=== PATIENT | female | born 1970 | race Caucasian/White ===

== ENCOUNTER → 2020-03-20 14:53 | Outpatient (CLI) | payer OTHER, SELFPAY ==
--- NOTE | ~2020-03-20 | MM_ITS ---
EXAMINATION: MM screening [facility] BI w chantal HISTORY: Screening mammogram TECHNIQUE: Craniocaudal and mediolateral oblique 3-D tomosynthesis images were obtained and synthetic 2-D images were generated. CAD analysis was submitted and interpreted. COMPARISON: 03/17/2019, 12/31/2017, 11/09/2016 bilateral digital screening mammogram examinations BREAST PARENCHYMAL COMPOSITION: There are scattered areas of fibroglandular density.. FINDINGS: There is no evidence of suspicious mass, calcification, or architectural distortion to sugg est malignancy in either breast. There has been no suspicious interval change. IMPRESSION: 1. No mammographic evidence of malignancy. 2. Recommend routine screening mammography in one year. BI-RADS Category 1: Negative Reviewed, dictated and finalized at location A. RNS CLERK
== END ==
PROVIDERS: Visit Provider Obstetrics & Gynecology Gynecology
DX: Z12.31 Encounter for screening mammogram for malignant neoplasm of breast (principal)
CPT/HCPCS: 77063; 77067

== ENCOUNTER 2020-12-03 13:58 | Emergency (ER) | payer BC, SELFPAY ==
--- NOTE | ~2020-12-03 | CT_ITS ---
EXAMINATION: CTA chest PE protocol DATE: 12/03/2020 19:03 INDICATION: Shortness of breath. TECHNIQUE: Computed tomography angiography (CTA) of the chest was performed with 100 mL Omnipaque-350 intravenous contrast timed to evaluate the pulmonary arteries. Coronal maximum intensity projection 3D-reconstructions were created by the technologist. Automated exposure control and iterative reconst ruction technique were employed. The dose-length product was 454.64 mGy-cm. COMPARISON: Chest single view 12/03/2020 FINDINGS: There are patchy groundglass opacities and septal thickening in the upper lobes and right m iddle lobe. There are airspace and groundglass opacities in the lower lobes with a posterior predomin ance. No pleural effusion. The heart size is normal. No pericardial effusion. There is no pulmonary e mbolus. There is moderate thoracic spondylosis. IMPRESSION: 1. No pulmonary embolus. 2. Diffuse lung disease, consistent with COVID-19 pneumonia. Reviewed, dictated and finalized at location A.
--- NOTE | ~2020-12-03 | XR_ITS ---
EXAMINATION: XR chest 1V portable DATE: 12/03/2020 17:44 INDICATION: Shortness of breath. COVID-19 pneumonia. TECHNIQUE: A single frontal view of the chest was obtained. COMPARISON: None. FINDINGS: There are mild airspace opacities in right lower lung zone. No pleural effusion or pneumoth orax. The heart size is normal. IMPRESSION: 1. Mild airspace opacities in right lower lung zone, consistent with atelectasis versus pneumonia. Reviewed, dictated and finalized at location A. IMPRESSION: 1. Mild airspace opacities in right lower lung zone, consistent with atelectasi s versus pneumonia.
[2020-12-03 14:51] VITALS: BP 134/70; O2SAT 97
--- NOTE | 2020-12-03 17:02 | ECG_ITS ---
Measurements Intervals [place] Rate: 90 P: 26 OR: 177 QRS: -1 QRSD: 81 T: 21 QT: 361 QTc: 443 Interpretive Statements SINUS RHYTHM DELAYED PRECORDIAL R/S TRANSITION LOW VOLTAGE- LIMB LEADS BASELINE WANDER- V1, V3-V5 BORDERLINE ECG Electronically Signed On 12-03-2020 20:04:20 CDT by Pérez Moura D.O.
[2020-12-03 17:45] LABS: Basophils Percent Auto 0.2 % (0.2-1.2); Hematocrit 43.8 % (37.0-47.0); Hemoglobin 14.5 g/dL (12.0-15.0); Immature Granulocyte Absolute 0.06 K/mm3 (0.00-0.031); Immature Granulocyte Percent A 1.1 % (0-0.5); Lymphocytes Percent Auto 20.5 % (18.3-44.2); Mean Corpuscular HGB Conc 33.1 g/dl (32-36); Mean Corpuscular Hemoglobin 29.8 pg (26-34); Mean Corpuscular Volume 90.1 fl (80-100); Monocytes Absolute Auto 0.3 K/mm3 (0.1-0.6); Neutrophils Absolute Auto 3.9 K/mm3 (1.3-6.7); Neutrophils Percent Auto 72.2 % (45.5-73.1); Platelet Count Result 150 k/mm3 (150-375); Red Blood Count 4.86 M/mm3 (4.2-5.4); Red Cell Distribution Width 12.7 % (11.5-14.5); White Blood Count 5.4 K/mm3 (4.5-10.0)
[2020-12-03 17:57] LABS: Alanine Aminotransferase 534 U/L (4-35); Albumin Level 4.1 g/dL (3.5-5.1); Alkaline Phosphatase 79 U/L (38-126); Anion Gap 6 mmol/L (8-16); Aspartate Amino Transferase 400 U/L (14-36); Bilirubin,Total 0.6 mg/dL (0.2-1.3); Blood Urea Nitrogen 9 mg/dL (7-17); Calcium 8.2 mg/dL (8.4-10.2); Carbon Dioxide 26 mmol/L (22-30); Chloride 100 mmol/L (98-107); Estimated Glomerular Filt Rate > 60; Glucose 189 mg/dL (65-110); INR 0.8; Lactate Dehydrogenase 1660 U/L (313-618); Potassium 4.3 mmol/L (3.4-5.0); Prothrombin Time 11.4 Seconds (11.1-14.7); Sodium 132 mmol/L (137-145)
[2020-12-03 17:58] LABS: Partial Thromboplastin Time 30.8 SECONDS (22.3-36.8)
[2020-12-03 18:15] LABS: Procalcitonin 0.1 ng/mL
--- NOTE | 2020-12-03 18:16 | ED.URI ---
HPI - URI/Sore Throat General Chief Complaint: Upper Respiratory Infection Stated Complaint: low o2 sats, covid positive Time Seen by Provider: 12/03/20 17:02 Source: patient Mode of arrival: ambulatory Limitations: no limitations History of Present Illness HPI Narrative: This is a 50 year old female that presents to the ER for shortness of breath. Reports she was diagnosed with COVID on November 30. Her symptoms started on November 25. Reports cough, fever, chills, and congestion. Reports she has a pulse oximeter at home and after she got up to go to the bathroom it was in the high 80s briefly. Also reports she has had some cramping in her right calf today which prompted her to be seen. She did not get the Covid vaccine. Denies chest pain or lower extremity edema. Related Data Allergies Allergy/AdvReac Type Severity Reaction Status Date / Time No Known Allergies Allergy Verified 12/03/20 16:59 Review of Systems Review of Systems: CONSTITUTIONAL: Reports fever, chills CARDIOVASCULAR: Denies chest pain, or edema. RESPIRATORY: Reports cough and dyspnea. All systems reviewed & are unremarkable except as noted in HPI and below PMFSH Past Medical History Medical History (Updated 12/03/20 @ 20:42 by Jeannette Ann PA-C) History of hypothyroidism Social History Social History (Updated 12/03/20 @ 18:22 by Jeannette Ann PA-C) Substance use: never Gender identity (if verbalized by the patient): Female Exam Narrative: GENERAL: Well-appearing, well-nourished, and in no acute distress. HEAD: Normocephalic, atraumatic. EYES: EOMI. ENT: Nares clear, no rhinorrhea or epistaxis. Mucous membranes moist. Oropharynx without tonsillar hypertrophy exudate or other lesions. Bilateral TMs pearly ram non-bulging NECK: Supple. No adenopathy or masses. CHEST: Rales at the lung bases. No respiratory distress. No wheezes or rhonchi HEART: Regular rate and rhythm. No murmur heard. Normal peripheral pulses. EXTREMITIES: Normal range of motion. No edema. SKIN: Warm, dry, no rash. NEURO: No focal deficits. Alert and oriented x3. PSYCH: Normal mood and affect Course Vital Signs Vital signs: Vital Signs Blood Pressure 134/70 12/03/20 14:51 Pulse Oximetry 97 12/03/20 14:51 Temperature 98.3 F 12/03/20 18:23 Pulse Rate 93 12/03/20 18:23 Respiratory Rate 18 12/03/20 18:23 Blood Pressure 99/56 L 12/03/20 18:23 Pulse Oximetry 96 12/03/20 18:23 MDM - URI/Sore Throat MDM Narrative Medical decision making narrative: Patient presents to the emergency department for ongoing cold symptoms. Was reporting some low oxygen saturations noted on her home pulse oximeter. Patient's oxygen saturation has remained normal while in the ED. She is afebrile and nontoxic-appearing. CBC without concerning findings. Metabolic panel does show transaminitis. Inflammatory markers are elevated. EKG without concerning findings. Her D-dimer was elevated, so CTA of the chest was obtained. This was without evidence of PE. Does show diffuse lung disease consistent with COVID-19 pneumonia. Patient able to ambulate in the ED and maintain oxygen saturation above 90%. She will be set up for an ultrasound of her lower extremities in the morning. She was given a dose of Lovenox while in the ED. She is stable and felt appropriate for further outpatient evaluation. Instructed to continue to monitor her oxygen saturation at home. She is to follow-up with her primary care doctor. She was given warnings to return to the ER Lab Data Attestation: I reviewed the patient's lab results. Result diagrams: 12/03/20 17:21 12/03/20 17:21 Labs: Lab Results 12/03/20 12/03/20 12/03/20 Range/Units 17:21 17:21 17:21 WBC 5.4 (4.5-10.0) K/mm3 RBC 4.86 (4.2-5.4) M/mm3 Hgb 14.5 (12.0-15.0) g/dL Hct 43.8 (37.0-47.0) % MCV 90.1 (80-100) fl MCH 29.8 (26-34) pg MCHC 33.1 (32-36) g/dl R
[2020-12-03 18:23] VITALS: BP 99/56; PULSE 93; RESP 18; TEMP 36.8; O2SAT 96
[2020-12-03 18:27] LABS: D Dimer 0.89 ug/mL (<0.48)
[2020-12-03 20:00] VITALS: BP 106/70; PULSE 84; RESP 20; O2SAT 95
[2020-12-03 20:30] LABS: Ferritin > 2000.00 ng/mL (11.1-264)
[2020-12-03] MEDS: ENOXAPARIN 100 MG/ML SYRINGE SUB-Q (20:44)
[2020-12-03 20:50] VITALS: BP 103/70; PULSE 80; RESP 20; O2SAT 95
== END 2020-12-03 20:50 | disposition home or self-care (01) ==
PROVIDERS: Physician Assistant; Emergency Provider Emergency Medicine; PCP Internal Medicine
DX: U07.1 COVID-19 (principal); J12.82 Pneumonia due to coronavirus disease 2019; E03.9 Hypothyroidism, unspecified
CPT/HCPCS: 36415; 71045; 71275; 80053; 82728; 83615; 84145; 85025; 85380; 85610; 85730; 93005; 96372; 99284; J1650; Q9967

== ENCOUNTER → 2021-05-23 14:28 | Outpatient (CLI) | payer BC, SELFPAY ==
--- NOTE | ~2021-05-23 | MM_ITS ---
EXAMINATION: MM screening [facility] BI w chantal HISTORY: Screening mammogram TECHNIQUE: Craniocaudal and mediolateral oblique 3-D tomosynthesis images were obtained and synthetic 2-D images were generated. CAD analysis was submitted and interpreted. COMPARISON: 03/20/2020, 03/17/2019, 12/31/2017 BREAST PARENCHYMAL COMPOSITION: There are scattered areas of fibroglandular density. FINDINGS: There is no evidence of suspicious mass, calcification, or architectural distortion to sugg est malignancy in either breast. There has been no suspicious interval change. IMPRESSION: 1. No mammographic evidence of malignancy. 2. Recommend routine screening mammography in one year. BI-RADS Category 1: Negative Reviewed, dictated and finalized at location A. ERCIAL LINES UNDERWRITER
== END ==
PROVIDERS: Visit Provider Obstetrics & Gynecology Gynecology
DX: Z12.31 Encounter for screening mammogram for malignant neoplasm of breast (principal)
CPT/HCPCS: 77063; 77067

== ENCOUNTER → 2022-05-27 13:25 | Outpatient (CLI) | payer BC, SELFPAY ==
--- NOTE | ~2022-05-27 | MM_ITS ---
EXAMINATION: MM screening [facility] BI w chantal HISTORY: Screening TECHNIQUE: Craniocaudal and mediolateral oblique 3-D tomosynthesis images were obtained and synthetic 2-D images were generated. CAD analysis was submitted and interpreted. COMPARISON: Comparison to multiple prior studies sequentially, with oldest reviewed study dated 08/24. BREAST PARENCHYMAL COMPOSITION: Breast composed of scattered areas of fibroglandular density FINDINGS: There is no evidence of suspicious mass, calcification, or architectural distortion to sugg est malignancy in either breast. There has been no suspicious interval change. IMPRESSION: 1. No mammographic evidence of malignancy. 2. Recommend routine screening mammography in one year. BI-RADS Category 1: Negative Reviewed, dictated and finalized at location A. BALLER
== END ==
PROVIDERS: PCP Internal Medicine; Visit Provider Obstetrics & Gynecology Gynecology
DX: Z12.31 Encounter for screening mammogram for malignant neoplasm of breast (principal)
CPT/HCPCS: 77063; 77067

== ENCOUNTER 2023-01-17 10:00 | Outpatient (CLI) | payer BC, SELFPAY ==
[2023-01-17 17:01] LABS: Alanine Aminotransferase 21 U/L (6-35); Albumin Level 3.9 g/dL (3.5-5.1); Alkaline Phosphatase 60 U/L (38-126); Anion Gap 4 mmol/L (8-16); Aspartate Amino Transferase 32 U/L (14-36); Bilirubin,Total 0.5 mg/dL (0.2-1.3); Blood Urea Nitrogen 10 mg/dL (7-17); Calcium 8.5 mg/dL (8.4-10.2); Carbon Dioxide 27 mmol/L (22-30); Chloride 106 mmol/L (98-107); Cholesterol 207 mg/dL (0-200); Estimated Glomerular Filt Rate > 60; Glucose 117 mg/dL (65-110); HDL Direct 83 mg/dL; Potassium 4.5 mmol/L (3.4-5.0); Sodium 137 mmol/L (137-145); Triglycerides 100 mg/dL (<150)
[2023-01-17 17:12] LABS: LDL Cholesterol Direct 85 mg/dL
[2023-01-17 17:47] LABS: Free T4 Free Thyroxine 1.06 ng/mL (0.78-2.19); Vitamin D 25 Hydroxy 51.8 ng/mL
[2023-01-17 19:38] LABS: Hemoglobin A1C 5.7 % (<5.7)
== END 2023-01-17 10:01 | disposition home or self-care (01) ==
LOC: ANHGOSHLAB 10:02
PROVIDERS: PCP Physician Assistant Medical; Visit Provider Obstetrics & Gynecology Gynecology
DX: E11.9 Type 2 diabetes mellitus without complications (principal); E03.9 Hypothyroidism, unspecified
CPT/HCPCS: 36415; 80053; 80061; 82306; 83036; 84439; 84443

== ENCOUNTER → 2023-05-30 12:53 | Outpatient (CLI) | payer BC, SELFPAY ==
--- NOTE | ~2023-05-30 | MM_ITS ---
EXAMINATION: MM screening debi BI w chantal HISTORY: Screening TECHNIQUE: Craniocaudal and mediolateral oblique 3-D tomosynthesis images were obtained and synthetic 2-D images were generated. CAD analysis was submitted and interpreted. COMPARISON: Comparison to multiple prior studies sequentially, with oldest reviewed study dated 11/09. BREAST PARENCHYMAL COMPOSITION: Not dense: There are scattered areas of fibroglandular density. FINDINGS: There is no evidence of suspicious mass, calcification, or architectural distortion to sugg est malignancy in either breast. There has been no suspicious interval change. IMPRESSION: 1. No mammographic evidence of malignancy. 2. Recommend routine screening mammography in one year. BI-RADS Category 1: Negative Reviewed, dictated and finalized at location A. CREW SUPERVISOR
== END ==
PROVIDERS: PCP Obstetrics & Gynecology Gynecology; Visit Provider Obstetrics & Gynecology Gynecology
DX: Z12.31 Encounter for screening mammogram for malignant neoplasm of breast (principal)
CPT/HCPCS: 77063; 77067

== ENCOUNTER 2023-07-01 13:28 | Emergency (ER) | payer BC, SELFPAY ==
--- NOTE | 2023-07-01 13:31 | ED.URI ---
HPI - URI/Sore Throat General Chief Complaint: Upper Respiratory Infection Stated Complaint: Sinus Infection Symptoms Source: patient and RN notes reviewed Mode of arrival: ambulatory Limitations: no limitations History of Present Illness HPI Narrative: Patient is a 52-year-old female who presents to the [facility] with complaints of sinus pain and pressure for the past month. She also endorses nasal congestion and drainage. States that she has had a headache and sore throat. Patient also reports frequent nonproductive cough. She denies chest pain or shortness of breath. States that she has been experiencing increased fatigue. She denies recent fevers or chills. Denies abdominal pain, nausea, vomiting, diarrhea. Related Data Home Medications Medication Instructions Recorded Confirmed cholecalciferol (vitamin D3) 1,250 1,250 mcg PO WEEKLY 07/22/22 10/25/22 mcg (50,000 unit) capsule levothyroxine 50 mcg capsule 50 mcg PO DAILY 07/22/22 10/25/22 Allergies Allergy/AdvReac Type Severity Reaction Status Date / Time amoxicillin [From Augmentin] AdvReac Severe Vomiting Verified 07/01/23 13:38 ciprofloxacin AdvReac Severe Hives Verified 07/01/23 13:38 clavulanic acid AdvReac Severe Vomiting Verified 07/01/23 13:38 [From Augmentin] Review of Systems Review of Systems: CONSTITUTIONAL: Denies fever, chills, or sweats. Reports fatigue EYES: Denies visual changes, redness, or discharge. ENT: Denies otalgia. Reports sore throat and nasal congestion. Reports sinus pain and pressure. CARDIOVASCULAR: Denies chest pain, palpitations, or edema. RESPIRATORY: Reports cough but denies dyspnea. GASTROINTESTINAL: Denies abdominal pain, nausea, vomiting, or diarrhea. GENITOURINARY: Denies dysuria or hematuria. SKIN: Denies rash or itching. MUSCULOSKELETAL: Denies back pain, joint pain, or myalgia. NEUROLOGIC: Reports headache but denies numbness or weakness. Pertinent positives per HPI. [facility] Past Medical History Medical History Asthma delivery delivered Hypothyroidism Pre-diabetes Family History Family History Mother Thyroid disease Grandparent Breast cancer Diabetes mellitus Cerebrovascular accident Social History Social History Smoking status: Never smoker Alcohol intake: never Substance use: never Lack of Transportation: No Lack of Food: Never True Current Housing: I Have Housing Concerned About Future Housing: No Difficulty Paying Gas/Electric Bills: No Currently Unemployed: No Difficulty w/ Childcare or Family Care: No Living arrangements: with family Occupation/Education: occupation Gender identity (if verbalized by the patient): Female Comments At the time of my signature, I reviewed and agree with the nursing past medical, surgical, social, and family history. There is no relevant family history pertinent to the patient complaint. Exam Narrative: GENERAL: This is a well-nourished, well-developed patient, in no apparent distress. HEAD: normocephalic, atraumatic. EYES: Sclera clear/white. Vision is grossly intact. EARS: External ears normal. Hearing grossly intact. NOSE: External nose normal. + congestion. Sinus tenderness. THROAT: Mucous membranes moist, posterior pharynx clear. NECK: Neck supple, non-tender without lymphadenopathy, masses or thyromegaly. CARDIOVASCULAR: Regular rate and rhythm without murmurs, gallops, or rubs. RESPIRATORY: Clear to auscultation. Breath sounds equal bilaterally. No wheezes, rales, or rhonchi. GASTROINTESTINAL: Abdomen soft, non-tender, nondistended. Bowel sounds are active. No hepato-splenomegaly, or palpable masses. No guarding. SKIN: warm, intact with no suspicious lesions or rash, good texture and turgor. NEURO: awake, alert, and oriented to person, p
[2023-07-01 13:45] VITALS: BP 117/71; PULSE 73; RESP 16; TEMP 36.5; O2SAT 100
== END 2023-07-01 13:58 | disposition home or self-care (01) ==
PROVIDERS: Emergency Provider Nurse Practitioner; PCP Family Medicine
DX: J01.90 Acute sinusitis, unspecified (principal); J45.909 Unspecified asthma, uncomplicated; E03.9 Hypothyroidism, unspecified; R73.03 Prediabetes
CPT/HCPCS: 99213; G0463

== ENCOUNTER 2023-10-24 09:49 | Outpatient (CLI) | payer BC, SELFPAY ==
[2023-10-28 15:15] LABS: Kit Draw Collected
== END 2023-10-24 09:50 | disposition home or self-care (01) ==
LOC: ANHGOSHLAB 09:52
PROVIDERS: PCP Family Medicine; Visit Provider Chiropractor
DX: E03.9 Hypothyroidism, unspecified (principal); E07.9 Disorder of thyroid, unspecified; D50.1 Sideropenic dysphagia; E55.9 Vitamin D deficiency, unspecified
CPT/HCPCS: 36415

== ENCOUNTER 2024-07-03 17:00 | Emergency (ER) | payer BC, SELFPAY ==
[2024-07-03 17:10] VITALS: BP 150/89; PULSE 82; RESP 16; TEMP 37.1; O2SAT 100
--- NOTE | 2024-07-03 17:23 | ED_ITS ---
HPI - Ear Problem General Chief complaint: Ear Stated complaint: LT ear ache History of Present Illness HPI Narrative: 54-year-old female presents today with complaints of intermittent left ear pain for 1 month. Denies any fever, body aches, chills, sinus congestion, runny nose. She does endorse seasonal allergies which she does have sometimes at this time of the year. Denies any drainage from the ear. She has tried Benadryl and Tylenol to help with the symptoms with little relief. She states she does have painful left side of the neck and her throat cm raw but not too bad. Related Data Home Medications ?Medication ?Instructions ?Recorded ?Confirmed ?Last Taken ?Type cholecalciferol (vitamin D3) 1,250 1,250 mcg PO WEEKLY 07/22/22 07/03/24 Unknown History mcg (50,000 unit) capsule levothyroxine 50 mcg capsule 50 mcg PO DAILY 07/22/22 07/03/24 Unknown History Allergies Allergy/AdvReac Type Severity Reaction Status Date / Time amoxicillin (From Augmentin) AdvReac Severe Vomiting Verified 07/03/24 17:07 ciprofloxacin AdvReac Severe Hives Verified 03/19/24 10:29 clavulanic acid (From AdvReac Severe Vomiting Verified 07/03/24 17:07 Augmentin) Review of Systems Review of Systems: All systems reviewed & are unremarkable except as noted in HPI and below Eyes: Eyes: Reports as per HPI ENT: Reports as per HPI Cardiovascular: Cardiovascular: Reports as per HPI Respiratory: Respiratory: Reports as per HPI Genitourinary: Genitourinary: Reports as per HPI Musculoskeletal: Musculoskeletal: Reports as per HPI Integumentary/Breasts: Skin/Breast: Reports as per HPI Neurologic: Reports as per HPI Psychiatric: Psychiatric: Reports as per HPI Endocrine: Endocrine: Reports as per HPI Hematologic/Lymphatic: Hematologic/Lymphatic: Reports as per HPI Allergic/Immunologic: Allergic/Immunologic: Reports as per HPI PMFSH Past Medical History Medical History Asthma delivery delivered Hypothyroidism Pre-diabetes Family History Family History Mother Thyroid disease Grandparent Breast cancer Diabetes mellitus Cerebrovascular accident Social History Social History (Updated 03/19/24 @ 10:57 by Roberto Branch) Social History: 03/19/24 patient declined SDOH Smoking status: Never smoker Alcohol intake: never Substance use: never Lack of Transportation: No Lack of Food: Never True Current Housing: I Have Housing Concerned About Future Housing: No Difficulty Paying Gas/Electric Bills: No Currently Unemployed: No Difficulty w/ Childcare or Family Care: No Living arrangements: with family Occupation/Education: occupation Gender identity (if verbalized by the patient): Female Exam Const: General: cooperative, healthy appearing, comfortable, no acute distress and well developed Orientation/consciousness: patient oriented x3 HENMT: Head: normal to inspection Ears: hearing grossly normal bilaterally, external ears normal and TM abnormal wth effusion serous bilateral Throat: posterior oropharynx normal Eyes: General: appearance normal, both eyes and all related structures Neck: Neck: normal visual inspection and no lymphadenopathy Resp: Effort & Inspection: normal respiratory effort and able to speak in complete sentences Auscultation: clear to auscultation bilaterally Cardio: Rate: regular rate Rhythm: regular rhythm Heart sounds: S1 normal heart sound present and S2 normal heart sound present Skin: General skin exam: normal color Neuro: General: patient oriented x3 Cognition (Neuro): normal cognition Speech: normal speech Psych: Mental Status: mental status grossly normal Course Course Level of Care: Express Care Visit Vital Signs Vital signs: Vital Signs Temperature 98.7 F 07/03/24 17:10 Pulse Rate 82 07/03/24 17:10 Respiratory Rate 16 07/03/24 17:10 Blood Pressure 150/89 H 07/03/24 17:10 Pulse Oximetry 100 07/03/24 17:10 Temperature 98.7 F 07/03/24 17:10 Pulse Rate 82 07/03/24 17:10 Respiratory Rate 16 07/03/24 17:10 Blood Pressure 150/89 H 07/03/24 17:10 Pulse Oximetry 100 07/03/24 17:10 Medical Decision Making MDM Narrative Medical decision making narrative: 54-year-old woman HPI is noted. Differentials include sinusitis, acute otitis media, acute otitis externa, ear pain. bilateral serous effusions noted with out signs of acute infection. Sinuses nontender. Discussed with patient suggest using a Claritin-D Zyrtec D or Odalis D to help dry things up. If pain persists then is to follow-up with ENT for further evaluation. Vital Signs Vital Signs: Vital Signs Temperature 98.7 F 07/03/24 17:10 Pulse Rate 82 07/03/24 17:10 Respiratory Rate 16 07/03/24 17:10 Blood Pressure 150/89 H 07/03/24 17:10 Pulse Oximetry 100 07/03/24 17:10 Temperature 98.7 F 07/03/24 17:10 Pulse Rate 82 07/03/24 17:10 Respiratory Rate 16 07/03/24 17:10 Blood Pressure 150/89 H 07/03/24 17:10 Pulse Oximetry 100 07/03/24 17:10 Discharge Plan Discharge Clinical Impression: Ear pain, left Patient Disposition: Home, Self-Care Condition: Stable Instructions: Antibiotic Form, Earache (ED) Additional Instructions: tylenol or ibuprofen as needed for pain. try using claritin d/zyrtec d/ or odalis d to help dry things up to see if there is improvement. If still with pain follow with ENT. Patient Language: Slovak Prescriptions: New Claritin-D 24 Hour 10-240 mg tablet extended release 24 hr 1 tablet PO DAILY PRN (Reason: sinus symptoms) Qty: 20 0RF No Action cholecalciferol (vitamin D3) 1,250 mcg (50,000 unit) capsule 1,250 mcg PO WEEKLY levothyroxine 50 mcg capsule 50 mcg PO DAILY ipratropium-albuterol 0.5 mg-3 mg(2.5 mg base)/3 mL solution for nebulization 3 ml inhalation QID PRN (Reason: shortness of breath or wheezing) Qty: 180 0RF bimatoprost 0.03 % drops 1 drp EACH EYE QPM Qty: 2.5 2RF Follow-up/Referrals: Constantino Ortega M.D. [Physician] - Carlota Nunez PA-C [Primary Care Provider] - Time of Disposition: 17:21
== END 2024-07-03 17:25 | disposition home or self-care (01) ==
PROVIDERS: Emergency Provider Nurse Practitioner Family; PCP Physician Assistant Medical
DX: H92.02 Otalgia, left ear (principal); J45.909 Unspecified asthma, uncomplicated; E03.9 Hypothyroidism, unspecified; R73.03 Prediabetes
CPT/HCPCS: 99213; G0463

== ENCOUNTER 2024-09-17 14:53 | Emergency (ER) | payer BC, SELFPAY ==
[2024-09-17 15:12] VITALS: BP 117/69; PULSE 70; RESP 16; TEMP 36.5; O2SAT 100
--- NOTE | 2024-09-17 15:47 | ED.GENADULT ---
HPI - General Adult General Chief complaint: Upper Respiratory Infection Stated complaint: SWOLLEN GLANDS/TIRED/DECREASED APPETITE Time Seen by Provider: 09/17/24 15:47 Source: patient, RN notes reviewed and old records reviewed Mode of arrival: ambulatory Limitations: no limitations History of Present Illness HPI narrative: 54 year female who presents to [facility] care with complaints of head congestion, drainage, some sore throat since . Patient reports that she has tenderness to her tonsillar lymph nodes and noticed left armpit swelling and tenderness this morning when she showered. Patient reports that she has been fatigued and appetite has been decreased. Patient reports that she did take home COVID test which was negative and she has had mono in the past. Patient states that she has had similar symptoms in the past which cleared with antibiotics. Patient reports that she has been taking Benadryl and allergy meds. MD complaint: nasal congestion with drainage lymphadenopathy, fatigued Onset (ago): day(s) (since 08/23/2024) Severity: moderate Treatments prior to arrival: other (Benadryl and allergy medication) Related Data Home Medications ?Medication ?Instructions ?Recorded ?Confirmed ?Last Taken ?Type cholecalciferol (vitamin D3) 1,250 1,250 mcg PO WEEKLY 07/22/22 09/17/24 Unknown History mcg (50,000 unit) capsule levothyroxine 50 mcg capsule 50 mcg PO DAILY 07/22/22 09/17/24 Unknown History Allergies Allergy/AdvReac Type Severity Reaction Status Date / Time amoxicillin (From Augmentin) AdvReac Severe Vomiting Verified 09/17/24 15:09 ciprofloxacin AdvReac Severe Hives Verified 09/17/24 15:09 clavulanic acid (From AdvReac Severe Vomiting Verified 09/17/24 15:09 Augmentin) Review of Systems Review of Systems: CONSTITUTIONAL:Reports malaise, no chills, sweats, or fever. EYES: Denies visual changes, redness, or discharge. ENT: Reports rhinorrhea, congestion, sinus pain,no otalgia and some sore throat. CARDIOVASCULAR: Denies chest pain, palpitations, or edema. RESPIRATORY: Reports no cough.? Denies dyspnea. GASTROINTESTINAL: Denies abdominal pain, nausea, vomiting, diarrhea, states decreased appetite SKIN: Denies rash or itching. MUSCULOSKELETAL: Denies myalgia. NEUROLOGIC: Denies headache. All systems reviewed & are unremarkable except as noted in HPI and below PMFSH Past Medical History Medical History Mononucleosis Pre-diabetes Hypothyroidism Asthma delivery delivered Family History Family History Mother Thyroid disease Grandparent Breast cancer Diabetes mellitus Cerebrovascular accident Social History Social History Social History: 03/19/24 patient declined SDOH Smoking status: Never smoker Alcohol intake: never Substance use: never Lack of Transportation: No Lack of Food: Never True Current Housing: I Have Housing Concerned About Future Housing: No Difficulty Paying Gas/Electric Bills: No Currently Unemployed: No Difficulty w/ Childcare or Family Care: No Living arrangements: with family Occupation/Education: occupation Gender identity (if verbalized by the patient): Female Comments At time of signature, agree with nursing past medical, surgical, social and family history. There is no relevant family history pertinent to the presenting complaint Exam Narrative: GENERAL: Well-appearing, well-nourished, and in no acute distress. HEAD: Normocephalic EYES: PERRLA, conjunctivae clear ENT: Nares clear, turbinates edematous and erythematous, clear discharge, sinus pressure.. Mucous membranes moist. TM pearly ram with dull light reflex bilaterally; no tragal tenderness. Oropharynx erythematous without lesions. Tonsils not enlarged and without exudate, no drooling, no hoarseness, no trismus, uvula midline.post nasal drainage NECK: Supple. tonsillar lymphadenopathy tenderness to armpits with lymphadenopathy left axilla palpable CHEST: Clear to auscultation, breath sounds equal. No wheezing, rhonchi, rales, or stridor. No respiratory distress, speaks in full sentences.SAO2 100% on room air HEART: Regular rate and rhythm. No murmur heard. SKIN: Warm, dry, no rash. NEURO: Alert and oriented x3. PSYCH: Normal mood and affect Course Course Emergency Course: Patient is aware of diagnosis, understands and agrees to treatment plan.? Anticipatory guidance given.? Patient agrees to follow-up as directed and is aware of reasons to seek care at the emergency department. Portions of this record may have been created with voice recognition software Level of Care: Express Care Visit Vital Signs Vital signs: Vital Signs Temperature 36.5 C 09/17/24 15:12 Pulse Rate 70 09/17/24 15:12 Respiratory Rate 16 09/17/24 15:12 Blood Pressure 117/69 09/17/24 15:12 Pulse Oximetry 100 09/17/24 15:12 Temperature 36.5 C 09/17/24 15:12 Pulse Rate 70 09/17/24 15:12 Respiratory Rate 16 09/17/24 15:12 Blood Pressure 117/69 09/17/24 15:12 Pulse Oximetry 100 09/17/24 15:12 Reviewed Medical Decision Making Differential Diagnosis Differential Diagnosis: URI, sinusitis, viral infection, lymphadenopathy Medical Records Medical records reviewed: Yes I reviewed the external patient's medical records. Vital Signs Vital Signs: Vital Signs Temperature 36.5 C 09/17/24 15:12 Pulse Rate 70 09/17/24 15:12 Respiratory Rate 16 09/17/24 15:12 Blood Pressure 117/69 09/17/24 15:12 Pulse Oximetry 100 09/17/24 15:12 Temperature 36.5 C 09/17/24 15:12 Pulse Rate 70 09/17/24 15:12 Respiratory Rate 16 09/17/24 15:12 Blood Pressure 117/69 09/17/24 15:12 Pulse Oximetry 100 09/17/24 15:12 reviewed Critical Care Time Critical Care Time Critical Care Time: No Discharge Plan Discharge Clinical Impression: Sinusitis nasal Qualifiers: Sinusitis location: pansinusitis Chronicity: acute Recurrence: not specified as recurrent Qualified Code(s): J01.40 - Acute pansinusitis, unspecified Patient Disposition: Home Condition: Stable Instructions: Antibiotic Form, Sinusitis (ED) Additional Instructions: Increase fluids especially juices and water Amni-lta-[id number] cough and cold medicine of your choice for your symptoms Zyrtec Claritin Shania daily include plain Sudafed in a.m. Steroids as directed--take with food heat to the face 20-30 minutes 4-6 times a day for pain Salt water gargles, throat lozenges or throat sprays as desired Antibiotic as directed--finished the medication If your symptoms persist, change or worsen significantly before you can contact your personal physician then please, without delay, go to the emergency department for further evaluation. Follow-up with PCP in 7-10 days or sooner if needed if swelling of arm pit does not resolve need to follow up with PCP, if increased symptoms go to the emergency room for further evaluation Patient Language: Kinyarwanda Prescriptions: New doxycycline hyclate 100 mg tablet 100 mg PO BID Qty: 20 0RF Rx Instructions: take all of prescription prednisone 20 mg tablet 20 mg PO BID Qty: 10 0RF Rx Instructions: take with food No Action Claritin-D 24 Hour 10-240 mg tablet extended release 24 hr 1 tablet PO DAILY PRN (Reason: sinus symptoms) Qty: 20 0RF cholecalciferol (vitamin D3) 1,250 mcg (50,000 unit) capsule 1,250 mcg PO WEEKLY levothyroxine 50 mcg capsule 50 mcg PO DAILY bimatoprost 0.03 % drops 1 drp EACH EYE QPM Qty: 7.5 2RF Follow-up/Referrals: UNKNOWN,DOCTOR [Primary Care Provider] - Time of Disposition: 16:07 Quality Andi Coma Scale Eyes: Open Verbal: Oriented and Alert Motor: Follows Commands Andi Coma Total Score: 15
== END 2024-09-17 16:17 | disposition home or self-care (01) ==
PROVIDERS: Emergency Provider Registered Nurse
DX: J01.40 Acute pansinusitis, unspecified (principal); E03.9 Hypothyroidism, unspecified; J45.909 Unspecified asthma, uncomplicated; R73.03 Prediabetes
CPT/HCPCS: 99213; G0463

== ENCOUNTER 2024-11-04 15:16 | Outpatient (CLI) | payer BC, SELFPAY ==
--- NOTE | ~2024-11-04 | MM_ITS ---
EXAMINATION: MM screening [facility] BI w [place] HISTORY: Screening mammogram TECHNIQUE: Craniocaudal and mediolateral oblique 3-D tomosynthesis images were obtained and synthetic 2-D images were generated. CAD analysis was submitted and interpreted. COMPARISON: 05/30/2023, 05/27/2022, 05/23/2021 BREAST PARENCHYMAL COMPOSITION:Not Dense. There are scattered areas of fibroglandular density. FINDINGS: No suspicious mass, calcification, or architectural distortion are identified in either garrison ast to suggest malignancy. There has been no suspicious interval change. IMPRESSION: No mammographic evidence of malignancy. Recommend routine screening mammography in one year. BI-RADS Category 1: Negative Reviewed, dictated and finalized at location .
== END 2024-11-04 15:17 | disposition home or self-care (01) ==
LOC: MICIMG 15:17
PROVIDERS: PCP Obstetrics & Gynecology Gynecology; Visit Provider Obstetrics & Gynecology Gynecology
DX: Z12.31 Encounter for screening mammogram for malignant neoplasm of breast (principal)
CPT/HCPCS: 77063; 77067